=== PATIENT | female | born 1955 | race Caucasian/White ===

== ENCOUNTER → 2017-04-28 | Outpatient (CLI) | payer MEDICARE, BC ==
[~2017-04-28] MED LIST: CLIN300C99 PO; HYDR-4305 PO; HYDR-4309 PO; LEVO125T77 PO; LISI5TAB25 PO; PENI-24 PO
== END ==
LOC: LAB 10:01
PROVIDERS: ATTEND Nurse Practitioner Family
DX: E03.9 Hypothyroidism, unspecified (principal)
CPT/HCPCS: 36415; 84439; 84443; 84480

== ENCOUNTER → 2017-06-22 | Outpatient (CLI) | payer MEDICARE, BC | LOC: LAB 10:05 | PROVIDERS: ATTEND Nurse Practitioner Family | DX: E03.9 Hypothyroidism, unspecified (principal) | CPT/HCPCS: 36415; 84439; 84443; 84480 ==

== ENCOUNTER → 2017-07-19 | Outpatient (CLI) | payer MEDICARE, BC ==
[2017-07-19 09:45] LABS: PLATELET COUNT, AUTOMATED 262 K/uL (150-450)
[2017-07-19 10:09] LABS: LDL CHOLESTEROL 67 mg/dl
== END ==
LOC: LAB 09:35
PROVIDERS: ATTEND Nurse Practitioner Family
DX: E03.9 Hypothyroidism, unspecified (principal); I10 Essential (primary) hypertension; R10.11 Right upper quadrant pain; R73.03 Prediabetes; R19.7 Diarrhea, unspecified
CPT/HCPCS: 36415; 82040; 82247; 82310; 82374; 82435; 82465; 82565; 82947; 83718; 84075; 84132; 84155; 84295; 84450; 84460; 84478; 84520; 85025

== ENCOUNTER → 2018-01-11 | Outpatient (CLI) | payer BC, MEDICARE ==
[~2018-01-11] MED LIST changes: -HYDR-4305 PO; -HYDR-4309 PO; +HYDR-627 PO; +HYDR-653 PO; +IOPAMIDOL 76% 150 ML INFUS BTL 150 ML ONE; +NS(*) 0.9% 50 ML BAG 50 ML ONE
--- NOTE | 2018-01-11 17:15 | RADIOLOGY IMAGING REPORT ---
FACILITY: [facility] PATIENT NAME: Nidia Hernández : 1955 MR: [id number] V: [id number] EXAM DATE: ORDERING PHYSICIAN: CHARLENE GRIFFIN TECHNOLOGIST: Location: [facility] - [place] Patient: Nidia Hernández : 1955 Visit/Account:[id number] Date of Sevice: 01/11/2018 Left lower extremity venous Doppler duplex ultrasound scan. HISTORY: Left leg pain. COMPARISON: None. A color flow Doppler duplex ultrasound examination with spectral analysis was performed on the lower extremity. The common femoral vein, superficial femoral vein, and popliteal vein are normal. These ve ssels compress and augment normally. The upper portions of the trifurcation veins are unremarkable. P ortions of the deep veins of the calf are obscured. No intraluminal filling defects are identified to suggest acute thrombus in the deep venous system. No abnormal fluid collections. A venous reflux study was not performed at this time. Note that Doppler ultrasound is somewhat insensitive below the knee. IMPRESSION: Negative for acute deep vein thrombosis. Report Dictated By: Gelacio Conley MD at 01/11/2018 5:10 PM Report E-Signed By: Gelacio Conley MD at 01/11/2018 5:11 PM WSN:[id number]
--- NOTE | 2018-01-11 22:22 | RADIOLOGY IMAGING REPORT ---
FAC[place] [facility] [place]IENT NAME: Nidia Hernández : 1955 MR: [id number] V: [id number] EXAM DATE: ORDERING PHYSICIAN: CHARLENE GRIFFIN TECHNOLOGIST: Location: [facility] - [place] Patient: Nidia Hernández : 1955 Visit/Account:[id number] Date of Sevice: 01/11/2018 Examination: Bilateral lower extremity CT venogram History: Knee pain. Evaluate for DVT. TECHNIQUE: Axial CT images of the bilateral lower extremities were obtained with IV contrast, utilizi ng a delayed venous phase of contrast enhancement. Imaging extends from the iliac crests to the mid c hoyt. Coronal and sagittal 2D reconstructed images were obtained. One of the following dose optimization techniques was utilized in the performance of this exam: Autom ated exposure control; adjustment of the mA and/or kV according to the patient's size; or use of an i terative reconstruction technique. Specific details can be referenced in the facility's radiology C T exam operational policy. Contrast: 120 mL of IV Isovue-[id number]. COMPARISON: None. FINDINGS: Venous findings: A segment of the right popliteal vein is obscured by streak artifact from a right knee arthroplasty. The bilateral lower extremity veins otherwise demonstrate normal enhancement, without evidence of any suspicious filling defect to suggest DVT, extending from the common iliac veins inferiorly to the pr oximal calf veins. Nonvascular findings: Visualized portions of the small bowel and colon are normal in caliber. No pelvic free fluid or adeno jassi. Visualized abdominal wall structures are intact. No acute osseous findings. Visualized osseous structures are intact. Right knee arthroplasty. IMPRESSION: A portion of the right popliteal vein is obscured by streak artifact from a right knee arthroplasty. The imaged bilateral lower extremity veins are otherwise unremarkable by CT. No evidence of DVT. Report Dictated By: Ramon Payne MD at 01/11/2018 10:09 PM Report E-Signed By: Ramon Payne MD at 01/11/2018 10:17 PM WSN:[id number]
== END ==
LOC: US 15:23
PROVIDERS: ATTEND Nurse Practitioner Family
DX: Z01.89 Encounter for other specified special examinations (principal); Z96.651 Presence of right artificial knee joint; M79.605 Pain in left leg
CPT/HCPCS: 82565; 93971; J7050; Q9967; 73706

== ENCOUNTER 2018-07-24 10:38 | Emergency (ER) | payer MEDICARE, BC ==
[~2018-07-24 10:38] MED LIST changes: -ARMTHY90PT PO; -CALC-747 PO; -CHOL200025 PO; -IODI150T PO; -OXYC-373 PO; -SELE200T32 PO; -VITA-131 PO; -[UNRECOGNIZED DRUG - CODE] PO
--- NOTE | 2018-07-24 10:51 | ER Report ---
History and Physical Time Seen By MD: 10:50 HPI/ROS CHIEF COMPLAINT: Postsurgical pain HISTORY OF PRESENT ILLNESS: This is a 62-year-old female who presents to the emergency department for postsurgical ankle pain. Patient states that Sunday she had a revision and hardware removal of previous right ankle surgery number of years ago. She states the surgery went well, she was given hydrocodone for pain management however she is unable to take the hydrocodone as she has severe nausea and some vomiting with the scrotum. She states she did have some leftover oxycodone which she did take, it is and unsure if it is actually working, she did try to follow-up with her primary care provider here locally freddie brendaeusebio her PCP is out of town" came to ER for pain control. She denies fevers or chills. No chest pain or shortness of breath no rashes. There is a small amount of bleeding that has soaked through the bandage on the right lateral aspect of her malleolus. CMS intact. REVIEW OF SYSTEMS: Respiratory: No cough, no dyspnea. Cardiovascular: No chest pain, no palpitations. Gastrointestinal: No vomiting, no abdominal pain. Musculoskeletal: As above. Allergies: Coded Allergies: nickel (Verified Allergy, Unknown, PAIN/ITCHING, 04/08/16) Home Meds Active Scripts Oxycodone Hcl/Acetaminophen (OXYCODONE-ACETAMINOPHEN 5-325) 1 Each Tablet, 1 EACH PO Q4-6H PRN for prn, #20 TAB 0 Refills Prov:EMELINA HERNANDEZ EMBOSSER APPRENTICE-BC 07/24/18 Hydrocodone Bit/Acetaminophen (NORCO 10-325 TABLET) 1 Each Tablet, 1 EACH PO Q4H PRN for PAIN, #12 Prov:CAMRYN HIGH DO 04/08/16 Reported Medications Lisinopril (LISINOPRIL) 5 Mg Tablet, 5 MG PO QDAY, TAB 04/03/16 Discontinued Reported Medications Levothyroxine Sodium (SYNTHROID) 125 Mcg Tablet, 125 MCG PO QDAY 04/03/16 Discontinued Scripts Clindamycin Hcl (CLINDAMYCIN HCL) 300 Mg Capsule, 300 MG PO TID for infecrtion, #30 CAPSULE Prov:CAMRYN HIGH DO 04/08/16 Penicillin V Potassium 500 Mg Tab (PENICILLIN V POTASSIUM 500 MG TAB) 500 Mg Tablet, 500 MG PO QID for infection, #28 Prov:CAMRYN HIGH DO 04/03/16 Past Medical/Surgical History The patient has a past medical and surgical history of hypothyroidism, tonsillectomy, hypertension,, disease, cholecystectomy, post menopause, arthritis, shoulder surgery, fibromyalgia. Reviewed Nurses Notes: Yes Constitutional Vital Sign - Last 24 Hours 07/24/18 07/24/18 07/24/18 07/24/18 10:38 10:43 10:44 10:45 Temp 98.3 Pulse ? 80 Resp 16 B/P (MAP) 130/80 130/80 (97) Pulse Ox 90 O2 Delivery Nasal Cannula 07/24/18 07/24/18 07/24/18 07/24/18 10:48 10:53 10:58 11:00 Pulse 77 77 74 B/P (MAP) 120/82 (95) Pulse Ox 87 92 92 07/24/18 07/24/18 07/24/18 07/24/18 11:03 11:08 11:13 11:18 Pulse 75 73 71 75 Pulse Ox 92 95 92 89 07/24/18 07/24/18 07/24/18 07/24/18 11:23 11:28 11:30 11:33 Pulse 67 72 71 B/P (MAP) 123/94 (104) Pulse Ox 95 96 95 07/24/18 07/24/18 07/24/18 07/24/18 11:38 11:43 11:48 11:53 Pulse 66 71 69 73 Pulse Ox 92 94 93 90 07/24/18 07/24/18 07/24/18 07/24/18 11:58 12:00 12:03 12:08 Pulse 63 68 69 B/P (MAP) 118/67 (84) Pulse Ox 91 94 95 07/24/18 07/24/18 07/24/18 07/24/18 12:13 12:18 12:23 12:28 Pulse 64 64 62 ??? Pulse Ox 92 93 95 07/24/18 12:30 B/P (MAP) 117/79 (92) Physical Exam General Appearance: The patient is alert, has no immediate need for airway protection and no current signs of toxicity. Eyes: Pupils equal and round no injection. Respiratory: Chest is non tender, lungs are clear to auscultation. Cardiac: regular rate and rhythm. Gastrointestinal: Abdomen is soft and non tender, no masses, bowel sounds normal. Musculoskeletal: Neck: Neck is supple and non tender. Extremities/Skin: the surgical site was unwrapped, assessed, no cellulitis or signs of infection, sites are well approximated. No purulent drainage. DIFFERENTIAL DIAGNOSIS: After history and physical exam differential diagnosis was considered for postoperative infection, postoperative complications, inadequate pain management. Medical Decision Making ED Course/Re-evaluation ED Course The patient was admitted to room. A history and physical obtained. Differential diagnoses were considered. The surgical site was unwrapped, assessed, no cellulitis or signs of infection, sites are well approximated. The wound was rewrapped. Patient was given 1 mg IM Dilaudid, 4 mg ODT Zofran, and 2- 5/325 Percocet. A new prescription was sent to the patient's pharmacy for oxycodone, she will return the hydrocodone to the pharmacy. Patient will contact her primary care provider for follow-up this week, she will possibly need an ex tension on her pain medications. She does have a follow-up appointment with her surgical team in [place] next Sunday. Patient states she is feeling much better, other questions or concerns at this time, patient was agreeable with this plan care and discharged home. Decision to Disposition Date: Jul 24, 2018 Decision to Disposition Time: 12:28 Depart Departure Latest Vital Signs Vital Signs Date Time Temp Pulse Resp B/P (MAP) Pulse Ox O2 Delivery O2 Flow Rate FiO2 07/24/18 12:30 117/79 (92) 07/24/18 12:28 ??? 07/24/18 12:23 95 07/24/18 10:44 98.3 16 Nasal Cannula Impression: Primary Impression: Postoperative pain Condition: Improved Disposition: HOME OR SELF-CARE Referrals: CHARLENE MARIA APRN (PCP) 5 Days New Scripts Oxycodone Hcl/Acetaminophen (OXYCODONE-ACETAMINOPHEN 5-325) 1 Each Tablet 1 EACH PO Q4-6H PRN for prn, #20 TAB 0 Refills Prov: EMELINA HERNANDEZ EMBOSSER APPRENTICE-BC 07/24/18 Patient Instructions: Acute Wound Care (ED) Additional Instructions: Continue to monitor your ankle and surgical sites for infection, increased swelling, pain, or if the bandages continue to soak through with blood, then please call your surgeon for a follow up sooner than next sunday. Be sure to drink plenty of water. Get plenty of rest. Please discard your Hydrocodone at your pharmacy and fill the Oxycodone. I would like you to follow up with Charlene Maria this week too for reevaluation, she can write another prescription for pain medications if needed. Do be aware with narcotics they can cause constipation, increase fiber or stool softeners to your diet. Wheelchair as needed. Return to the ED for any other concerns or worsening symptoms. EMELINA HERNANDEZ EMBOSSER APPRENTICE-BC Jul 24, 2018 10:51
[2018-07-24] MEDS ORDERED: ONDANSETRON 4 MG ODT TABDP SL ONE (11:00)
[2018-07-24] MEDS ORDERED: oxyCODON/ACET (*)5/325MG (CII) 1 TAB TAB PO ONE (11:00)
[2018-07-24] MEDS ORDERED: HYDROMORPHONE HCL 1 MG/ML SYRINGE IM ONE (11:00)
[2018-07-24] MEDS ORDERED: OXYC-373 PO (11:53)
[2018-07-24 12:30] VITALS: BP 117/79
[2018-07-24] MEDS ORDERED: ARMTHY90PT PO (23:44)
[2018-07-25] MEDS ORDERED: IODI150T PO (11:12)
[2018-07-25] MEDS ORDERED: SELE200T32 PO (11:12)
[2018-07-25] MEDS ORDERED: CALC-747 PO (11:12)
[2018-07-25] MEDS ORDERED: CHOL200025 PO (11:12)
[2018-07-25] MEDS ORDERED: VITA-131 PO (11:12)
[2018-07-25] MEDS ORDERED: [UNRECOGNIZED DRUG - CODE] PO (11:12)
== END 2018-07-24 12:46 | disposition home or self-care (01) ==
LOC: ER 11:02
DX: M25.571 Pain in right ankle and joints of right foot (principal); G89.18 Other acute postprocedural pain
CPT/HCPCS: 96372; 99283; A9270; J1170; Q0162; S0119

== ENCOUNTER 2018-07-24 15:23 | Observation (INO) | payer MEDICARE, BC ==
[~2018-07-24 15:23] MED LIST changes: +OXYC-373 PO
--- NOTE | 2018-07-24 15:28 | ER Report ---
History and Physical Time Seen By MD: 15:27 HPI/ROS CHIEF COMPLAINT: Lightheadedness and dizziness HISTORY OF PRESENT ILLNESS: This is a 62-year-old female who returns the emergency department via EMS for lightheadedness and dizziness. Patient is status post right ankle surgery and revision 3 days, was seen earlier in the emergency department for pain control. She was given narcotics, at the time of her discharge she states she was feeling well and okay to go home. About 30-40 minutes ago she began to feel lightheaded and dizzy, she was at home alone, became very concerned and anxious called EMS subsequently the patient was transported to the emergency department for further evaluation. Patient is alert and oriented, interacting well, however she was noted to be hypoxic on room air. She was also given 8 mg IV Zofran in route for her nausea. The surgical site one previously inspected did not show any signs of infection, no cellulitis, no fevers, the wound was rewrapped. REVIEW OF SYSTEMS: Constitutional: No fever, no chills. Eyes: No discharge. ENT: No sore throat. Cardiovascular: No chest pain, no palpitations. Respiratory: No cough, no shortness of breath. Gastrointestinal: As above. Genitourinary: No hematuria. Musculoskeletal: As above. Skin: No rashes. Neurological: As above. Allergies: Coded Allergies: nickel (Verified Allergy, Unknown, PAIN/ITCHING, 07/24/18) Home Meds Active Scripts Oxycodone Hcl/Acetaminophen (OXYCODONE-ACETAMINOPHEN 5-325) 1 Each Tablet, 1 EACH PO Q4-6H PRN for prn, #20 TAB 0 Refills Prov:EMELINA HERNANDEZ FACILITIES MANAGER-BC 07/24/18 Hydrocodone Bit/Acetaminophen (NORCO 10-325 TABLET) 1 Each Tablet, 1 EACH PO Q4H PRN for PAIN, #12 Prov:CAMRYN HIGH DO 04/08/16 Reported Medications Lisinopril (LISINOPRIL) 5 Mg Tablet, 5 MG PO QDAY, TAB 04/03/16 Discontinued Reported Medications Levothyroxine Sodium (SYNTHROID) 125 Mcg Tablet, 125 MCG PO QDAY 04/03/16 Discontinued Scripts Clindamycin Hcl (CLINDAMYCIN HCL) 300 Mg Capsule, 300 MG PO TID for infecrtion, #30 CAPSULE Prov:CAMRYN HIGH DO 04/08/16 Penicillin V Potassium 500 Mg Tab (PENICILLIN V POTASSIUM 500 MG TAB) 500 Mg Tablet, 500 MG PO QID for infection, #28 Prov:CAMRYN HIGH DO 04/03/16 Past Medical/Surgical History Patient has a past medical cervical history of hypothyroidism, tonsillectomy, hypertension, gallbladder disease, cholecystectomy, post menopause, arthritis, right ankle surgery and revision, shoulder surgery, right ankle fracture, f ibromyalgia. Reviewed Nurses Notes: Yes Constitutional Vital Sign - Last 24 Hours 07/24/18 07/24/18 07/24/18 07/24/18 15:23 15:24 15:28 15:30 Temp 97.6 Pulse 90 87 94 Resp 16 B/P (MAP) 121/79 133/83 (100) Pulse Ox 96 94 94 O2 Delivery Nasal Cannula 07/24/18 07/24/18 07/24/18 07/24/18 15:33 15:38 15:43 15:48 Pulse 93 98 91 Resp 11 35 16 Pulse Ox 88 86 94 94 07/24/18 07/24/18 07/24/18 07/24/18 15:53 15:58 16:00 16:03 Pulse 103 96 93 Resp 23 9 14 B/P (MAP) 122/73 (89) Pulse Ox 94 92 94 07/24/18 07/24/18 07/24/18 07/24/18 16:08 16:13 16:17 16:18 Pulse 98 92 92 Resp 9 11 7 Pulse Ox 94 89 86 O2 Flow Rate 3.5 07/24/18 07/24/18 07/24/18 07/24/18 16:23 16:28 16:30 16:33 Pulse 108 97 98 Resp 10 8 10 B/P (MAP) 124/68 (86) 07/24/18 07/24/18 07/24/18 07/24/18 16:38 16:43 16:48 16:53 Pulse 91 141 76 Resp 9 40 19 16 Pulse Ox 95 79 07/24/18 07/24/18 07/24/18 07/24/18 16:58 17:00 17:03 17:18 Pulse 73 68 Resp 11 B/P (MAP) 126/71 (89) Pulse Ox 93 90 82 07/24/18 07/24/18 07/24/1819 17:23 17:28 17:30 17:33 Pulse 68 62 70 Resp 9 19 8 B/P (MAP) 118/76 (90) Pulse Ox 94 94 92 07/24/18 07/24/18 07/24/18 07/24/18 17:38 17:43 17:48 17:53 Pulse 64 67 69 71 Resp 11 14 17 8 Pulse Ox 92 95 97 90 07/24/18 07/24/18 17:58 18:03 Pulse 63 61 Resp 9 9 Pulse Ox 93 94 Physical Exam General Appearance: The patient is alert, has no immediate need for airway protection and no signs of toxicity. Eyes: 2-3 mm, Pupils equal and round no pallor or injection. ENT, Mouth: Mucous membranes are moist. Respiratory: There are no retractions, lungs are clear to auscultation. Cardiovascular: Irregular rate and rhythm, no murmurs, clicks or rubs. Gastrointestinal: Abdomen is soft and non tender, no masses, bowel sounds normal. Neurological: Alert and oriented 4. Moving all extremities. Following all commands. No focal neuro deficits. Skin: Warm and dry, no rashes. Musculoskeletal: Neck is supple non tender. Extremities are nontender, nonswollen and have full range of motion. The right ankle wrap remains intact, no drainage soaking through the bandage at this time. DIFFERENTIAL DIAGNOSIS: After history and physical exam differential diagnosis was considered for dizziness including but not limited to peripheral and central causes of vertigo, atrial fibrillation, pulmonary embolus, Orthostatic causes including dehydration, and blood loss. Medical Decision Making Data Points Result Diagram: 07/24/18 1608 07/24/18 1608 Laboratory Hematology Test 07/24/18 16:08 07/24/18 16:13 07/24/18 16:49 Red Blood Count 4.84 M/uL (4.17-5.56) Mean Corpuscular Volume 91.8 fL (80.0-96.0) Mean Corpuscular Hemoglobin 30.5 pg (26.0-33.0) Mean Corpuscular Hemoglobin Concent 33.2 g/dL (32.0-36.0) Red Cell Distribution Width 14.8 % (11.5-14.5) Mean Platelet Volume 8.5 fL (7.2-11.1) Neutrophils (%) (Auto) 73.4 % (39.4-72.5) Lymphocytes (%) (Auto) 14.8 % (17.6-49.6) Monocytes (%) (Auto) 11.1 % (4.1-12.4) Eosinophils (%) (Auto) 0.2 % (0.4-6.7) Basophils (%) (Auto) 0.5 % (0.3-1.4) Nucleated RBC Relative Count (auto) 0.0 /100WBC Neutrophils # (Auto) 6.3 K/uL (2.0-7.4) Lymphocytes # (Auto) 1.3 K/uL (1.3-3.6) Monocytes # (Auto) 1.0 K/uL (0.3-1.0) Eosinophils # (Auto) 0.0 K/uL (0.0-0.5) Basophils # (Auto) 0.0 K/uL (0.0-0.1) Nucleated RBC Absolute Count (auto) 0.00 K/uL D-Dimer Quantitative (PE/DVT) 0.51 ug/ml (0-0.50) Sodium Level 138 mmol/L (137-145) Potassium Level 4.0 mmol/L (3.5-5.0) Chloride Level 103 mmol/L (98-107) Carbon Dioxide Level 28 mmol/L (22-31) Blood Urea Nitrogen 16 mg/dl (7-18) Creatinine 0.80 mg/dl (0.52-1.04) Glomerular Filtration Rate Calc > 60.0 Random Glucose 110 mg/dl (75-110) Calcium Level 9.0 mg/dl (8.4-10.2) Total Bilirubin 1.2 mg/dl (0.2-1.3) Aspartate Amino Transf (AST/SGOT) 23 U/L (0-35) Alanine Aminotransferase (ALT/SGPT) 33 U/L (0-56) Alkaline Phosphatase 89 U/L (0-126) Troponin I < 0.012 ng/ml Total Protein 6.2 g/dl (6.3-8.2) Albumin 3.6 g/dl (3.5-5.0) Urine Color Yellow Urine Clarity Clear Urine pH 7.0 pH (4.8-9.5) Urine Specific [place] 1.010 Urine Protein Negative mg/dL (NEGATIVE) Urine Glucose (UA) Negative mg/dL (NEGATIVE) Urine Ketones Negative mg/dL (NEGATIVE) Urine Blood Negative (NEGATIVE) Urine Nitrite Negative (NEGATIVE) Urine Bilirubin Negative (NEGATIVE) Urine Urobilinogen Negative mg/dL (0.2-1.9) Urine Leukocyte Esterase Trace (NEGATIVE) Urine RBC 1 /HPF (0-2/HPF) Urine WBC 1 /HPF (0-5/HPF) Urine Squamous Epithelial Cells Many /LPF (</=FEW) Urine Bacteria Negative /HPF (NONE-FEW) Urine Mucus None /HPF (NONE-FEW) Chemistry Test 07/24/18 16:08 07/24/18 16:13 07/24/18 16:49 White Blood Count 8.5 k/uL (4.5-11.0) Red Blood Count 4.84 M/uL (4.17-5.56) Hemoglobin 14.8 g/dL (12.0-16.0) Hematocrit 44.4 % (34.0-47.0) Mean Corpuscular Volume 91.8 fL (80.0-96.0) Mean Corpuscular Hemoglobin 30.5 pg (26.0-33.0) Mean Corpuscular Hemoglobin Concent 33.2 g/dL (32.0-36.0) Red Cell Distribution Width 14.8 % (11.5-14.5) Platelet Count 271 K/uL (150-450) Mean Platelet Volume 8.5 fL (7.2-11.1) Neutrophils (%) (Auto) 73.4 % (39.4-72.5) Lymphocytes (%) (Auto) 14.8 % (17.6-49.6) Monocytes (%) (Auto) 11.1 % (4.1-12.4) Eosinophils (%) (Auto) 0.2 % (0.4-6.7) Basophils (%) (Auto) 0.5 % (0.3-1.4) Nucleated RBC Relative Count (auto) 0.0 /100WBC Neutrophils # (Auto) 6.3 K/uL (2.0-7.4) Lymphocytes # (Auto) 1.3 K/uL (1.3-3.6) Monocytes # (Auto) 1.0 K/uL (0.3-1.0) Eosinophils # (Auto) 0.0 K/uL (0.0-0.5) Basophils # (Auto) 0.0 K/uL (0.0-0.1) Nucleated RBC Absolute Count (auto) 0.00 K/uL D-Dimer Quantitative (PE/DVT) 0.51 ug/ml (0-0.50) Glomerular Filtration Rate Calc > 60.0 Calcium Level 9.0 mg/dl (8.4-10.2) Total Bilirubin 1.2 mg/dl (0.2-1.3) Aspartate Amino Transf (AST/SGOT) 23 U/L (0-35) Alanine Aminotransferase (ALT/SGPT) 33 U/L (0-56) Alkaline Phosphatase 89 U/L (0-126) Troponin I < 0.012 ng/ml Total Protein 6.2 g/dl (6.3-8.2) Albumin 3.6 g/dl (3.5-5.0) Urine Color Yellow Urine Clarity Clear Urine pH 7.0 pH (4.8-9.5) Urine Specific [place] 1.010 Urine Protein Negative mg/dL (NEGATIVE) Urine Glucose (UA) Negative mg/dL (NEGATIVE) Urine Ketones Negative mg/dL (NEGATIVE) Urine Blood Negative (NEGATIVE) Urine Nitrite Negative (NEGATIVE) Urine Bilirubin Negative (NEGATIVE) Urine Urobilinogen Negative mg/dL (0.2-1.9) Urine Leukocyte Esterase Trace (NEGATIVE) Urine RBC 1 /HPF (0-2/HPF) Urine WBC 1 /HPF (0-5/HPF) Urine Squamous Epithelial Cells Many /LPF (</=FEW) Urine Bacteria Negative /HPF (NONE-FEW) Urine Mucus None /HPF (NONE-FEW) Coagulation Test 07/24/18 16:08 D-Dimer Quantitative (PE/DVT) 0.51 ug/ml Urinalysis Test 07/24/18 16:49 Urine Color Yellow Urine Clarity Clear Urine pH 7.0 pH (4.8-9.5) Urine Specific [place] 1.010 Urine Protein Negative mg/dL (NEGATIVE) Urine Glucose (UA) Negative mg/dL (NEGATIVE) Urine Ketones Negative mg/dL (NEGATIVE) Urine Blood Negative (NEGATIVE) Urine Nitrite Negative (NEGATIVE) Urine Bilirubin Negative (NEGATIVE) Urine Urobilinogen Negative mg/dL (0.2-1.9) Urine Leukocyte Esterase Trace (NEGATIVE) Urine RBC 1 /HPF (0-2/HPF) Urine WBC 1 /HPF (0-5/HPF) Urine Squamous Epithelial Cells Many /LPF (</=FEW) Urine Bacteria Negative /HPF (NONE-FEW) Urine Mucus None /HPF (NONE-FEW) EKG/Imaging EKG Interpretation 12 lead EKG: Time of EKG 1540. Rhythm: Atrial fibrillation/flutter, rate of 97 bpm. [place]: normal QRS: Prolonged QT, ST segments: No ST depression or elevation identified, inverted T waves in V1 through V5. No previous EKGs for comparison. 12 lead EKG: Repeat EKG after 5 mg IV metoprolol. Rhythm: Normal sinus rhythm, ventricular rate 64 bpm. [place]: normal QRS: normal ST segments: No ST depression or elevation identified. Inverted T-wave in V2, flat T waves in V3 and V4. Imaging PATIENT NAME: Nidia Hernández : 1955 MR: [id number] V: [id number] EXAM DATE: [id number] ORDERING PHYSICIAN: EMELINA HERNANDEZ TECHNOLOGIST: Location: [facility] Patient: Nidia Hernández : 1955 Visit/Account:[id number] Date of Sevice: 07/24/2018 EXAMINATION: CT CHEST PULMONARY ANGIOGRAM COMPARISON: None available HISTORY: Shortness of breath. Recent ankle surgery. PROCEDURE: Pulmonary arterial phase imaging of the chest with 75 mL intravenous Isovue 370. Reconstruction of the source data set includes multiplanar 2D in the sagittal and coronal planes, and 3D reconstructed coronal slab MIP series. One of the following dose optimization techniques was utilized in the performance of this exam: Automated exposure control; adjustment of the mA and/or kV according to the patient's size; or use of an iterative reconstruction technique. Specific details can be referenced in the facility's radiology CT exam operational policy. FINDINGS: Pulmonary vasculature: There is good contrast opacification of the pulmonary arterial system. Dilated 4.1 cm main pulmonary artery. No pulmonary artery filling defect. Cardiac and mediastinum: Cardiac chamber size is normal. No pericardial effusion. No thoracic aortic aneurysm. Lymph nodes: Negative. Lungs and pleura: Lingula atelectasis. No consolidation or nodule. No pneumothorax, edema, or effusion. Airways: Negative. Visualized upper abdomen: No acute findings. Cholecystectomy. Osseous structures: Thoracic spine multilevel mild degenerative change. No acute findings. IMPRESSION: 1. No pulmonary embolism or evidence of acute cardiopulmonary disease. 2. Dilated main pulmonary artery is suggestive of pulmonary artery hypertension. Results were discussed with EMELINA HERNANDEZ at 07/24/2018 5:48 PM. Report Dictated By: Ryan Sevilla MD at 07/24/2018 5:34 PM Report E-Signed By: Ryan Sevilla MD at 07/24/2018 5:49 PM WSN:[id number] ED Course/Re-evaluation Clinical Indication for ER IV: Hydration, IV Access ED Course The patient was admitted to room. A history of physical were obtained. Differential diagnoses were considered. IV was started. A CBC, CMP, d-dimer and troponin were obtained. EKG showing atrial fibrillation/flutter. Laboratory paige dies unremarkable, positive d-dimer, negative UA. I did review the positive d- dimer results with the patient, with new onset atrial fibrillation, I did recommend in conjunction with the positive d-dimer a CTA, patient was agreeable. She is also given a 1 L normal saline bolus. 0.2 mg IV Narcan. 25mg IV metoprolol given, patient did convert into a sinus rhythm, repeat EKG showing sinus rhythm with rate of 64 bpm. patient was also given 25 mg by mouth immediate release metoprolol. CTA negative for pulmonary embolus, concerning for possible pulmonary hypertension. I did speak with Dr. Florence Weeks regarding patient's case, he is accepted the patient in the hospitalist services for new- onset atrial fibrillation and observation overnight, with postoperative pain. Patient is agreeable. Patient continues to have improved's symptomology, improved lightheadedness and dizziness, she states she is feeling much better. 07/24/2018 4:45:16 pm patient states feeling better after the 0.2 mg IV Narcan, she states she feels less anxious, her dizziness is improving. She was also given 5 mg IV metoprolol, patient did appear to convert into a sinus rhythm on the bedside monitor. Blood pressure 126/71. Heart rate in the low 80s. 07/24/2018 5:59:56 pm I did speak with Dr. Florence Weeks, the hospitalist on-call, she is accepted the patient in the hospitalist services for new-onset atrial fibrillation and postoperative pain. I had several calls out to [facility] specifically medical rec ords trying to obtain EKG for comparison. Decision to Disposition Date: Jul 24, 2018 Decision to Disposition Time: 17:59 Depart Departure Latest Vital Signs Vital Signs Date Time Temp Pulse Resp B/P (MAP) Pulse Ox O2 Delivery O2 Flow Rate FiO2 07/24/18 18:03 61 9 94 07/24/18 17:30 118/76 (90) 07/24/18 16:17 3.5 07/24/18 15:24 97.6 Nasal Cannula Impression: Primary Impression: New onset atrial fibrillation Additional Impression: Postoperative pain Condition: Improved Disposition: Admitted from ER Referrals: CHARLENE GRIFFIN APRN (PCP) Problem Qualifiers EMELINA HERNANDEZ FACILITIES MANAGER-BC Jul 24, 2018 15:28
[2018-07-24] MEDS ORDERED: NS(*) 0.9% 1000 ML BAG 1,000 ML IV ONE (15:33)
[2018-07-24] MEDS ORDERED: NALOXONE HCL 0.4 MG/ML VIAL IVP ONE (15:35)
--- NOTE | 2018-07-24 15:49 | EKG ---
FACILITY: [facility] [place] PATIENT NAME: YANY HINES : [id number] MR: [id number] V: [id number] EXAM DATE: ORDERING PHYSICIAN: EMELINA HERNANDEZ TECHNOLOGIST: Test Reason : dizziness Blood Pressure : / mmHG Vent. Rate : 097 BPM Atrial Rate : 416 BPM P-R Int : 000 ms QRS Dur : 074 ms QT Int : 376 ms P-R-T Axes : 000 044 -01 degrees QTc Int : 477 ms Atrial fibrillation Nonspecific T wave findings Slightly prolonged QTc Abnormal ECG No previous ECGs available Confirmed by FELIPE ROSE ([id number]) on 07/24/2018 8:14:25 PM Referred By: Confirmed By:FELIPE ROSE
[2018-07-24 16:20] LABS: PLATELET COUNT, AUTOMATED 271 K/uL (150-450)
[2018-07-24] MEDS ORDERED: METOPROLOL TART 5 MG/5 ML VIAL IVP ONE (16:30)
[2018-07-24] MEDS ORDERED: NS(*) 0.9% 50 ML BAG 50 ML ONE (16:54)
[2018-07-24] MEDS ORDERED: IOPAMIDOL 76% 100 ML INFUS BTL 100 ML ONE (16:54)
[2018-07-24] MEDS ORDERED: METOPROLOL TART 50 MG TAB PO ONE (16:55)
--- NOTE | 2018-07-24 17:53 | RADIOLOGY IMAGING REPORT ---
FACILITY: [facility] PATIENT NAME: Nidia Hernández : 1955 MR: [id number] V: [id number] EXAM DATE: ORDERING PHYSICIAN: EMELINA HERNANDEZ TECHNOLOGIST: [place] [facility] [place]idia Hernández : 1955 Visit/Account:[id number] Date of Sevice: 07/24/2018 EXAMINATION: CT CHEST PULMONARY ANGIOGRAM COMPARISON: None available HISTORY: Shortness of breath. Recent ankle surgery. PROCEDURE: Pulmonary arterial phase imaging of the chest with 75 mL intravenous Isovue 370. Reconstru ction of the source data set includes multiplanar 2D in the sagittal and coronal planes, and 3D recon structed coronal slab MIP series. One of the following dose optimization techniques was utilized in the performance of this exam: Autom ated exposure control; adjustment of the mA and/or kV according to the patient's size; or use of an i terative reconstruction technique. Specific details can be referenced in the facility's radiology C T exam operational policy. FINDINGS: Pulmonary vasculature: There is good contrast opacification of the pulmonary arterial system. Dilate d 4.1 cm main pulmonary artery. No pulmonary artery filling defect. Cardiac and mediastinum: Cardiac chamber size is normal. No pericardial effusion. No thoracic aortic aneurysm. Lymph nodes: Negative. Lungs and pleura: Lingula atelectasis. No consolidation or nodule. No pneumothorax, edema, or effusio n. Airways: Negative. Visualized upper abdomen: No acute findings. Cholecystectomy. Osseous structures: Thoracic spine multilevel mild degenerative change. No acute findings. IMPRESSION: 1. No pulmonary embolism or evidence of acute cardiopulmonary disease. 2. Dilated main pulmonary artery is suggestive of pulmonary artery hypertension. Results were discussed with EMELINA HERNANDEZ at 07/24/2018 5:48 PM. Report Dictated By: Ryan Sevilla MD at 07/24/2018 5:34 PM Report E-Signed By: Ryan Sevilla MD at 07/24/2018 5:49 PM WSN:[id number]
[2018-07-24 18:32] VITALS: BP 114/65
[2018-07-24] MEDS ORDERED: FLUSH 10 ML SYR IVP PRN (19:50)
[2018-07-24] MEDS: oxyCODON/ACET (*)5/325MG (CII) 1 TAB TAB PO PRN (20:10)
--- NOTE | 2018-07-24 20:11 | History & Physical ---
History of Present Illness Chief Complaint "I felt like I might pass out" History of Present Illness 62yo female with PMHx significant for HTN, hypothyroidism on replacement, and recent hardware removal right foot/ankle. She reports having her right foot/ankle surgery 2 days ago in [place], [place]. She has noted rather significant pain developing in her right ankle since returning home. She was seen in [facility] ER earlier today and evaluate dfor the pain. She was started on Percocet and allowed to go home. Upon returning home, however, she began having significant dizziness/lightheadedness and feeling as if she might pass out. She did not lose consciousness. Her symptoms did improve when she sat down on her bed. She did not appreciate any chest pain or awareness of palpitations/heart racing. She did feel somewhat dyspneic. She then began to feel quite anxious and contacted EMS. She was transported to the ER for evaluation. Upon arrival, she was found to be in atrial fibrillation with heart rate in 90-120 range. Her labs were unremarkable other than slightly elevated d-dimer. Her CT pulmonary angiogram was negative for PE. While in the ER she did convert on her own to sinus rhythm. At present she reports feeling improved other than her persistent foot/ankle pain. She was recommended for admission. History Problems: (1) History of knee replacement Status: Resolved (2) History of cholecystectomy Status: Resolved (3) HTN (hypertension) Status: Chronic (4) Hypothyroidism Status: Chronic (5) History of ankle surgery Status: Acute Home Meds Active Scripts Oxycodone Hcl/Acetaminophen (OXYCODONE-ACETAMINOPHEN 5-325) 1 Each Tablet, 1 EACH PO Q4-6H PRN for prn, #20 TAB 0 Refills Prov:EMELINA HERNANDEZ CAPACITY PLANNING ENGINEER- 07/24/18 Hydrocodone Bit/Acetaminophen (NORCO 10-325 TABLET) 1 Each Tablet, 1 EACH PO Q4H PRN for PAIN, #12 Prov:CAMRYN HIGH DO 04/08/16 Reported Medications Lisinopril (LISINOPRIL) 5 Mg Tablet, 5 MG PO QDAY, TAB 04/03/16 Discontinued Reported Medications Levothyroxine Sodium (SYNTHROID) 125 Mcg Tablet, 125 MCG PO QDAY 04/03/16 Discontinued Scripts Clindamycin Hcl (CLINDAMYCIN HCL) 300 Mg Capsule, 300 MG PO TID for infecrtion, #30 CAPSULE Prov:CAMRYN HIGH DO 04/08/16 Penicillin V Potassium 500 Mg Tab (PENICILLIN V POTASSIUM 500 MG TAB) 500 Mg Tablet, 500 MG PO QID for infection, #28 Prov:CAMRYN HIGH DO 04/03/16 Allergies: Coded Allergies: nickel (Verified Allergy, Unknown, PAIN/ITCHING, 07/24/18) Other Social/Family Hx She is single with grown children. She is retired. Hx Smoking: No Smoking Status: Former Smoker Hx Alcohol Use: Yes Alcohol Use: Occassional Hx Substance Use Disorder: No Review of Systems Constitutional: No Fever, No Chills Neurological: No Syncope, No Confusion Eyes: No Vision Change, No Loss of Vision Cardiovascular: No Chest Pain, No Palpitations Respiratory: Shortness of Breath; No Cough, No Wheezing Gastrointestinal: No Nausea, No Vomiting, No Diarrhea, No Hematemesis, No Hematochezia, No Melena, No Abdominal Pain Genitourinary: No Dysuria, No Hematuria Musculoskeletal: Pain, Impaired Mobility Exam Vital Signs Vital Signs Date Time Temp Pulse Resp B/P (MAP) Pulse Ox O2 Delivery O2 Flow Rate FiO2 07/24/18 18:32 97.9 82 16 114/65 (81) 90 Room Air 07/24/18 16:17 3.5 General Appearance: Alert, Awake Neuro: Other (she has a right foot drop which is chronic) Eyes: PERRLA ENT: Oropharynx Clear Neck: Other (left lobe of thyroid appears to be modestly enlarged) Cardiovascular: Regular Rate and Rhythm (no murmur), No JVD Respiratory: Clear to Auscultation Chest: No Tenderness GI: Abd Soft and Non-Tender : No CVA Tenderness Lymph: No Adenopathy Extremities: Warm, Perfused, Other (surgical incisions on right ankle appear clean and dry/sutures and "Zipline" intact no dehiscence noted) Integumentary: Other (a minimal amount of erythema around proximal surigical incision on dorsum of foot) Medical Decision Making Data Points Result Diagram: 07/24/18 1608 07/24/18 1608 Item Value Date Time Albumin 3.6 g/dl 07/24/18 1608 Total Protein 6.2 g/dl L 07/24/18 1608 Troponin I < 0.012 ng/ml 07/24/18 1608 Alkaline Phosphatase 89 U/L 07/24/18 1608 Alanine Aminotransferase (ALT/SGPT) 33 U/L 07/24/18 1608 Aspartate Amino Transf (AST/SGOT) 23 U/L 07/24/18 1608 Total Bilirubin 1.2 mg/dl 07/24/18 1608 Calcium Level 9.0 mg/dl 07/24/18 1608 Urine Color Yellow 07/24/18 1649 Urine Clarity Clear 07/24/18 1649 Urine pH 7.0 pH 07/24/18 1649 Urine Specific [place] 1.010 07/24/18 1649 Urine Protein Negative mg/dL 07/24/18 1649 Urine Glucose (UA) Negative mg/dL 07/24/18 1649 Urine Ketones Negative mg/dL 07/24/18 1649 Urine Blood Negative 07/24/18 1649 Urine Nitrite Negative 07/24/18 1649 Urine Bilirubin Negative 07/24/18 1649 Urine Urobilinogen Negative mg/dL 07/24/18 1649 Urine Leukocyte Esterase Trace H 07/24/18 1649 Urine RBC 1 /HPF 07/24/18 1649 Urine WBC 1 /HPF 07/24/18 1649 Urine Squamous Epithelial Cells Many /LPF H 07/24/18 1649 Urine Bacteria Negative /HPF 07/24/18 1649 Urine Mucus None /HPF 07/24/18 1649 D-Dimer Quantitative (PE/DVT) 0.51 ug/ml H 07/24/18 1608 EKG / Imaging EKG Interpretation PATIENT NAME: YANY HERNÁNDEZ : [id number] MR: [id number] V: [id number] EXAM DATE: ORDERING PHYSICIAN: EMELINA HERNANDEZ TECHNOLOGIST: Test Reason : dizziness Blood Pressure : / mmHG Vent. Rate : 097 BPM Atrial Rate : 416 BPM P-R Int : 000 ms QRS Dur : 074 ms QT Int : 376 ms P-R-T Axes : 000 044 -01 degrees QTc Int : 477 ms Atrial fibrillation Nonspecific T wave findings Slightly prolonged QTc Abnormal ECG No previous ECGs available Confirmed by FELIPE ROSE ([id number]) on 07/24/2018 8:14:25 PM Referred By: Confirmed By:FELIPE ROSE Imaging PATIENT NAME: Yany Hernández : 1955 MR: [id number] V: [id number] EXAM DATE: [id number] ORDERING PHYSICIAN: EMELINA HERNANDEZ TECHNOLOGIST: Location: [facility] [place] Patient: Yany Hernández : 1955 Visit/Account:[id number] Date of Sevice: 07/24/2018 EXAMINATION: CT CHEST PULMONARY ANGIOGRAM COMPARISON: None available HISTORY: Shortness of breath. Recent ankle surgery. PROCEDURE: Pulmonary arterial phase imaging of the chest with 75 mL intravenous Isovue 370. Reconstruction of the source data set includes multiplanar 2D in the sagittal and coronal planes, and 3D reconstructed coronal slab MIP series. One of the following dose optimization techniques was utilized in the performance of this exam: Automated exposure control; adjustment of the mA and/or kV according to the patient's size; or use of an iterative shital nstruction technique. Specific details can be referenced in the facility's radiology CT exam operational policy. FINDINGS: Pulmonary vasculature: There is good contrast opacification of the pulmonary arterial system. Dilated 4.1 cm main pulmonary artery. No pulmonary artery filling defect. Cardiac and mediastinum: Cardiac chamber size is normal. No pericardial effusion. No thoracic aortic aneurysm. Lymph nodes: Negative. Lungs and pleura: Lingula atelectasis. No consolidation or nodule. No pneumothorax, edema, or effusion. Airways: Negative. Visualized upper abdomen: No acute findings. Cholecystectomy. Osseous structures: Thoracic spine multilevel mild degenerative change. No acute findings. IMPRESSION: 1. No pulmonary embolism or evidence of acute cardiopulmonary disease. 2. Dilated main pulmonary artery is suggestive of pulmonary artery hypertension. Results were discussed with EMELINA HERNANDEZ at 07/24/2018 5:48 PM. Report Dictated By: Ryan Sevilla MD at 07/24/2018 5:34 PM Report E-Signed By: Ryan Sevilla MD at 07/24/2018 5:49 PM [id number] Assessment and Plan Problems: (1) New onset atrial fibrillation Status: Acute Assessment & Plan: It sounds as if her symptoms are most likely related to the episode of atrial fibrillation. She has converted on her own. Will admit for further monitoring and evaluation. Will hold off on starting any medications at this time. It does not sound as if she has had any previous episodes. Will check serial troponins. Will also check TSH as well as echocardiogram. Will monitor on telemetry. If recurrent episode(s), will start rate control medication as well as anticoagulant for CVA prophylaxis. I discussed all of this with Ms. Hernández and she reports understanding. (2) Postoperative pain Status: Acute Assessment & Plan: She reports improvement with the Percocet. Will continue with the same for now. She will be following up with her orthopedist in the next week. (3) Hypothyroidism Status: Chronic Assessment & Plan: On replacement with [place] thyroid 90mg daily. Will check TSH. (4) HTN (hypertension) Status: Chronic Assessment & Plan: She has been on lisinopril 5mg daily. Will hold for now. Monitor BPs. If she does need medication for rate control of her a-fib, would start diltiazem or beta mary carmen instead of the lisinopril. Copies to: CHARLENE GRIFFIN APRN ; Venous Thromboembolism Antithrombotics Is Pt On Any Antithrombotics?: Yes Exam Sepsis Risk: No Definite Risk FELIPE ROSE MD Jul 24, 2018 20:11
--- NOTE | 2018-07-24 22:10 | EKG ---
FACILITY: [facility] - [place] PATIENT NAME: YANY HINES : [id number] MR: [id number] V: [id number] EXAM DATE: ORDERING PHYSICIAN: EMELINA HERNANDEZ TECHNOLOGIST: OBED Quinteros Reason : Blood Pressure : / mmHG Vent. Rate : 064 BPM Atrial Rate : 064 BPM P-R Int : 148 ms QRS Dur : 072 ms QT Int : 422 ms P-R-T Axes : 056 035 016 degrees QTc Int : 435 ms Sinus rhythm Nonspecific T wave abnormality Abnormal ECG Confirmed by FELIPE ROSE ([id number]) on 07/25/2018 6:05:53 AM Referred By: Confirmed By:FELIPE ROSE
[2018-07-24] MEDS ORDERED: ARMTHY90PT PO (23:44)
[2018-07-25 02:02] VITALS: BP 119/66
[2018-07-25] MEDS: oxyCODON/ACET (*)5/325MG (CII) 1 TAB TAB PO PRN ×3 (02:02→12:00)
[2018-07-25 05:46] VITALS: BP 116/61
[2018-07-25 07:05] VITALS: BP 100/66
[2018-07-25] MEDS ORDERED: ENOXAPARIN 40 MG/0.4ML SYR SC SCH (09:00)
--- NOTE | 2018-07-25 11:08 | RADIOLOGY IMAGING REPORT ---
FAC[place] [facility] [place] PATIENT NAME: Nidia Hernández : 1955 MR: [id number] V: [id number] EXAM DATE: [id number] ORDERING PHYSICIAN: KIRBY LOWRY TECHNOLOGIST: Location: Patient: Nidia Hernández : 1955 Visit/Account:[id number] Date of Sevice: 07/25/2018 Exam type: CHEST PA LAT History: hypoxia on RA Comparison: CTA chest performed July 24, 2018. Findings: There is a linear band of consolidation in the left lingula corresponding to the band of consolidatio n seen on the recent CT. There is no evidence of additional infiltrates pleural effusions or overt p ulmonary edema. There is no evidence of a pneumothorax or pneumomediastinum. The cardiac silhouette is normal in size. There are spondylotic changes of the thoracic spine IMPRESSION: 1. Linear band of consolidation in the lingula appears similar to yesterday's CT and may represent s carring versus atelectasis Report Dictated By: Doris Mckeon MD at 07/25/2018 11:01 AM Report E-Signed By: Doris Mckeon MD at 07/25/2018 11:03 AM WSN:[email or web address]
[2018-07-25] MEDS ORDERED: CHOL200025 PO (11:12)
[2018-07-25] MEDS ORDERED: SELE200T32 PO (11:12)
[2018-07-25] MEDS ORDERED: CALC-747 PO (11:12)
[2018-07-25] MEDS ORDERED: VITA-131 PO (11:12)
[2018-07-25] MEDS ORDERED: IODI150T PO (11:12)
[2018-07-25] MEDS ORDERED: [UNRECOGNIZED DRUG - CODE] PO (11:12)
--- NOTE | 2018-07-25 11:24 | Hospitalist Progress Note ---
Subjective Progress Notes Subjective She was admitted with atrial fibrillation. She had no acute events overnight. She remains in sinus rhythm this morning. Patient Complains of: Cardiovascular: No: Chest Pain Respiratory: No: Shortness of Breath Physical Exam Vital Signs Date Time Temp Pulse Resp B/P (MAP) Pulse Ox O2 Delivery O2 Flow Rate FiO2 07/25/18 08:49 76 07/25/18 08:44 69 07/25/18 07:05 98.1 16 100/66 (77) Nasal Cannula 2.0 Intake and Output 07/25/18 07:00 Intake Total 500 ml Balance 500 ml Intake Oral 500 ml # Voids 2 General Appearance: Alert, Awake, No Acute Distress, Afebrile Neuro: No Gross deficits Cardiovascular: Regular Rate and Rhythm Respiratory: No Respiratory Distress, Clear to Auscultation GI: Soft and Non-Tender Psych: Alert & Oriented X3, Appropriate Mood & Affect Result Diagram: 07/24/18 1608 07/24/18 1608 Assessment and Plan Problems: (1) New onset atrial fibrillation Status: Acute Assessment & Plan: It sounds as if her symptoms are most likely related to the episode of atrial fibrillation. She has converted on her own. She was admitted for further monitoring and evaluation. Will hold off on starting any medications at this time. It does not sound as if she has had any previous episodes. Serial troponins negative. Will also check TSH as well as echocardiogram. Will monitor on telemetry. If recurrent episode(s), will start rate control medication as well as anticoagulant for CVA prophylaxis. I discussed all of this with Ms. Hernández and she reports understanding. (2) Postoperative pain Status: Acute Assessment & Plan: She reports improvement with the Percocet. Will continue with the same for now. She will be following up with her orthopedist in the next week. (3) Hypothyroidism Status: Chronic Assessment & Plan: On replacement with [place] thyroid 90mg daily. Will check TSH. (4) HTN (hypertension) Status: Chronic Assessment & Plan: She has been on lisinopril 5mg daily. Will hold for now. Monitor BPs. If she does need medication for rate control of her a-fib, would start diltiazem or beta mary carmen instead of the lisinopril. (5) Hypoxia Status: Acute Assessment & Plan: She is requiring 2L of oxygen. She denies use of oxygen at baseline. CXR shows likely atelectasis, she will be started on flutter therapy today. Will likely need to discharge with oxygen. Exam Sepsis Risk: No Definite Risk Problem Qualifiers (1) HTN (hypertension): Hypertension type: essential hypertension Qualified Codes: I10 - Essential (primary) hypertension KIRBY LOWRY FERTILIZER LOADER Jul 25, 2018 11:24
[2018-07-25 12:01] VITALS: BP 119/68
--- NOTE | 2018-07-25 13:28 | Hospitalist Depart ---
Discharge Summary Reason for Hosp/Final Diag: (1) New onset atrial fibrillation Status: Acute Hospital Course & Plan: It sounds as if her symptoms are most likely related to the episode of atrial fibrillation. She has converted on her own. She was admitted for further monitoring and evaluation. Will hold off on starting any medications at this time. It does not sound as if she has had any previous episodes. Serial troponins negative. Will also check TSH as well as echocardiogram. She will follow up with PCP for results. She was monitored on telemetry and remained in NSR. If recurrent episode(s), would then start rate control medication as well as anticoagulant for CVA prophylaxis. I discussed all of this with Ms. Hernández and she reports understanding. (2) Postoperative pain Status: Acute Hospital Course & Plan: She reports improvement with the Percocet. Will continue with the same for now. She will be following up with her orthopedist in the next week. (3) Hypothyroidism Status: Chronic Hospital Course & Plan: On replacement with [place] thyroid 90mg daily. Will check TSH. TSH to be done within the next day. She will follow up with Charlene Maria PET CARE ASSISTANT for results. (4) HTN (hypertension) Status: Chronic Hospital Course & Plan: She has been on lisinopril 5mg daily. This was held initially upon admission. If she does need medication for rate control of her a-fib, would start diltiazem or beta mary carmen instead of the lisinopril. (5) Hypoxia Status: Acute Hospital Course & Plan: She is requiring 2L of oxygen. She denies use of oxygen at baseline. CXR shows likely atelectasis, she will be started on flutter therapy today. CTA performed in ER negative for PE. She was recommended to wear 2 liters at all times. She will follow up next week with Charlene Maria PET CARE ASSISTANT regarding oxygen use. She likely needs sleep study as her oxygen saturations dropped into the 50's percent while sleeping. Her room air saturation is 76% during the day. Patient educated on importance of wearing oxygen at all times. Departure Latest Vital Signs Vital Signs 07/25/18 12:01 Temp 98.1 Pulse 65 Resp 16 B/P (MAP) 119/68 (85) Pulse Ox 90 O2 Delivery Nasal Cannula O2 Flow Rate 2.0 Weight (Pounds): 282 Result Diagram: 07/24/18 1608 07/24/18 1608 Condition: Improved Discharge: Home, Self Care Discharge Instructions Home Meds Active Scripts Oxycodone Hcl/Acetaminophen (OXYCODONE-ACETAMINOPHEN 5-325) 1 Each Tablet, 1 EACH PO Q4-6H PRN for prn, #20 TAB 0 Refills Prov:EMELINA HERNANDEZ INVESTMENT ANALYST-BC 07/24/18 Reported Medications Iodine (KELP) 150 Mcg Tablet, 1 TAB PO QDAY 07/25/18 Calcium/Magnesium/Zinc (EVQZYAY-BJKCUZGEX-STAV TAB) 1 Each Tablet, 1 TAB PO QDAY 07/25/18 Selenomethionine (SELENIUM) 200 Mcg Tablet, 1 TAB PO QDAY 07/25/18 Vitamin B Complex (VITAMIN B COMPLEX) 1 Each Tablet, 1 TAB PO QDAY 07/25/18 Methylsulfonylmethane (MSM) 1,000 Mg Tablet, 1 TAB PO QDAY 07/25/18 Cholecalciferol (Vitamin D3) (VITAMIN D3) 2,000 Unit Capsule, 1 CAP PO QDAY, CAPSULE 07/25/18 Thyroid (ARMOUR THYROID) 90 Mg Tab, 90 MG PO DAILY, TAB 07/24/18 Lisinopril (LISINOPRIL) 5 Mg Tablet, 5 MG PO QDAY, TAB 04/03/16 Discontinued Reported Medications Levothyroxine Sodium (SYNTHROID) 125 Mcg Tablet, 125 MCG PO QDAY 04/03/16 Discontinued Scripts Hydrocodone Bit/Acetaminophen (NORCO 10-325 TABLET) 1 Each Tablet, 1 EACH PO Q4H PRN for PAIN, #12 Prov:LENNOXCAMRYN DO 04/08/16 Clindamycin Hcl (CLINDAMYCIN HCL) 300 Mg Capsule, 300 MG PO TID for infecrtion, #30 CAPSULE Prov:LENNOXCAMRYN Henriquez DO 04/08/16 Penicillin V Potassium 500 Mg Tab (PENICILLIN V POTASSIUM 500 MG TAB) 500 Mg Tablet, 500 MG PO QID for infection, #28 Prov:CAMRYN HIGH [place] DO 04/03/16 Diet: Regular Activity: As Tolerated Special Instructions: Wear oxygen at all times. Take medications as prescribed. Follow up with Charlene Maria NP next week. Copies to: CHARLENE MARIA SUPERVISOR EXTRUSION ; Venous Thromboembolism Antithrombotics Is Pt On Any Antithrombotics?: Yes Problem Qualifiers (1) HTN (hypertension): Hypertension type: essential hypertension Qualified Codes: I10 - Essential (primary) hypertension KIRBY LOWRY INVESTMENT ANALYST Jul 25, 2018 13:27
--- NOTE | 2018-07-25 14:21 | NUR ---
Patient is ordered for 2L of oxygen continuously at discharge. She has had a long conversation with cardiopulmonary and with discharge planning about the need for oxygen and the cost. She is refusing the oxygen despite the education given.
== END 2018-07-25 12:47 | disposition home or self-care (01) ==
LOC: ER 15:30 → MED 18:07 → INTOOBSV 18:07
PROVIDERS: ADMIT Internal Medicine; ATTEND Internal Medicine
DX: I48.91 Unspecified atrial fibrillation (principal); G89.18 Other acute postprocedural pain; I10 Essential (primary) hypertension; E03.9 Hypothyroidism, unspecified; R09.02 Hypoxemia
CPT/HCPCS: 36415; 71046; 71275; 81001; 84443; 84484; 85025; 85379; 93005; 93306; 94667; 96361; 96374; 96375; 99284; A9270; G0378; J1170; J2310; J7030; J7050; Q0162; Q9967; 82040; 82247; 82310; 82374; 82435; 82565; 82947; 84075; 84132; 84155; 84295; 84450; 84460; 84520; S0119

== ENCOUNTER → 2018-07-24 | Outpatient (CLI) | payer MEDICARE, BC ==
[~2018-07-24] MED LIST changes: +ARMTHY90PT PO; +CALC-747 PO; +CHOL200025 PO; +IODI150T PO; -IOPAMIDOL 76% 150 ML INFUS BTL 150 ML ONE; -NS(*) 0.9% 50 ML BAG 50 ML ONE; +OXYC-373 PO; +SELE200T32 PO; +VITA-131 PO; +[UNRECOGNIZED DRUG - CODE] PO
== END ==
LOC: AMB 14:26
PROVIDERS: ATTEND Nurse Practitioner
DX: R40.4 Transient alteration of awareness (principal); R42 Dizziness and giddiness; R11.2 Nausea with vomiting, unspecified
CPT/HCPCS: A0425; A0427